=== PATIENT | male | born 1975 | race Caucasian/White ===

== ENCOUNTER 2022-12-14 14:53 | Emergency (ER) | payer SELFPAY ==
[~2022-12-14] VITALS: Ht 170.2 cm; Wt 70.0 kg
[2022-12-14 15:13] VITALS: O2SAT 98
[2022-12-14] MEDS ORDERED: TETANUS, DIPHTHERIA, PERTUSSIS VAC/PF 0.5ML (>10YR OLD) IM ONE (15:30)
[2022-12-14 15:55] VITALS: BP 110/75; PULSE 100; RESP 17; TEMP 98.8
== END 2022-12-14 15:57 | disposition home or self-care (01) ==
LOC: ER 14:58
DX: S50.811A Abrasion of right forearm, initial encounter (principal); F19.90 Other psychoactive substance use, unspecified, uncomplicated; E11.9 Type 2 diabetes mellitus without complications; Z98.890 Other specified postprocedural states; V89.2XXA Person injured in unspecified motor-vehicle accident, traffic, initial encounter; Y93.89 Activity, other specified; Y92.89 Other specified places as the place of occurrence of the external cause; Y99.8 Other external cause status
CPT/HCPCS: 90715; 99283; Z7610